=== PATIENT | male | born 2000 | race Caucasian/White ===

== ENCOUNTER 2022-01-30 07:30 | Emergency (ER) | payer SELFPAY ==
[2022-01-30 07:35] VITALS: BP 114/72; PULSE 81; RESP 16; TEMP 36.6; O2SAT 97
--- NOTE | 2022-01-30 07:42 | ED.ANIMALBIT ---
HPI - Animal Bite General Chief Complaint: Animal Bite Stated Complaint: bitten by dog on L wrist Time Seen by Provider: 01/30/22 07:42 History of Present Illness HPI narrative: 21-year-old male, alcoholic presents to the ER after he got bit by his dog at 6.30 AM. He has 4 puncture wounds in his left forearm 2 on the dorsal aspect and 2 on ventral aspect. He also has a bite on his right thumb with partial avulsion of the nail. No other injuries noted. Patient has full range of motion of the right wrist. No sensory loss. His dog is up-to-date on its vaccinations. He received a tetanus shot 4 years ago. MD complaint: animal bite Onset (ago): hour(s) ( 1 hour ago) Animal: dog Description of animal: household pet Mechanism: bite Location: other ( left wrist and right thumb) Location - Extremities: Left: shoulder and Right: hand Pain description: sharp Context: playing with animal Associated symptoms: none Related Data Patient tetanus UTD: Yes Allergies Allergy/AdvReac Type Severity Reaction Status Date / Time No Known Allergies Allergy Verified 01/30/22 07:46 Review of Systems Review of Systems: All systems reviewed & are unremarkable except as noted in HPI and below Constitutional: Constitutional: Reports as per HPI and Reports no additional constitutional complaints Eyes: Eyes: Reports as per HPI and Reports no additional eye complaints ENT: Reports system reviewed and no additional complaints, except as documented and Reports as per HPI Cardiovascular: Cardiovascular: Reports as per HPI and Reports no additional cardiovascular complaints Respiratory: Respiratory: Reports as per HPI and Reports no additional respiratory complaints Gastrointestinal: Gastrointestinal: Reports as per HPI and Reports no additional gastrointestinal complaints Genitourinary: Genitourinary: Reports no additional male genitourinary complaints and Reports as per HPI Musculoskeletal: Musculoskeletal: Reports no additional musculoskeletal complaints and Reports as per HPI Integumentary/Breasts: Comments: 4 bite rios on his left distal forearm and right thumb Neurologic: Reports system reviewed and no additional complaints, except as documented and Reports as per HPI Psychiatric: Psychiatric: Reports no additional psychiatric complaints and Reports as per HPI Endocrine: Endocrine: Reports no additional endocrine complaints and Reports as per HPI Hematologic/Lymphatic: Hematologic/Lymphatic: Reports no additional hematologic/lymphatic complaints and Reports as per HPI Allergic/Immunologic: Allergic/Immunologic: Reports no additional allergic/immunologic complaints and Reports as per HPI Exam Const: General: healthy appearing Nutritional Appearance: thin Orientation/consciousness: patient oriented x3 Limitations: no limitations HENMT: Head: normal to inspection Ears: external ears normal General nose exam: Normal external nose present Face and sinus: normal facial exam Mouth: Yes Normal oral and palatal mucosa present Throat: posterior oropharynx normal Eyes: Conjunctivae: conjunctivae normal Pupils: Equal, round and reactive pupils present EOM: EOMs intact bilaterally Neck: Neck: normal visual inspection, no lymphadenopathy and no meningeal signs Chest: Chest palpation & inspection: normal inspection of the chest Resp: Effort & Inspection: normal respiratory effort Auscultation: clear to auscultation bilaterally Cardio: Rate: regular rate Rhythm: regular rhythm GI: GI Palp: Yes Soft to palpation Auscultation: normal bowel sounds Back/Spine/Pelvis: Back: no CVA tenderness Skin: Other: 2 bite rios/puncture wounds on the ventral aspect of the left distal wrist along with 1 cm laceration at the bite rios. 2 puncture wounds on the dorsal aspect of the left distal wrist. No motor or sensory loss. Injury to the right thumb with partial avulsion of the nail Neuro: General: patient oriented x3, moves all ext
[2022-01-30] MEDS: AMOXICILLIN/CLAVULANATE K 875-125 MG TAB 1 TABLET PO (08:06)
== END 2022-01-30 08:12 | disposition home or self-care (01) ==
PROVIDERS: Emergency Provider Internal Medicine Critical Care Medicine
DX: S41.152A Open bite of left upper arm, initial encounter (principal); W54.0XXA Bitten by dog, initial encounter
CPT/HCPCS: 99283; A9270

== ENCOUNTER 2025-05-17 18:14 | Emergency (ER) | payer SELFPAY ==
[2025-05-17 18:14] VITALS: BP 114/81; PULSE 81; RESP 16; TEMP 37.2; O2SAT 99
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
[2025-05-17] MEDS: IBUPROFEN 600 MG TABLET PO (18:31)
[2025-05-17] MEDS: HYDROcodone/acetaminophen (*CRX) 5-325 MG TABLET 1 TAB PO (18:31)
--- NOTE | 2025-05-17 18:48 | PC.NURSE ---
On 05/17/25, the student, [LUISA GALLAGHER ], provided care and completed [facility] documentation on this patient. I have reviewed the student's documentation and agree with the findings.
== END 2025-05-17 18:43 | disposition home or self-care (01) ==
PROVIDERS: Emergency Provider Emergency Medicine; Referring Provider Internal Medicine
DX: S02.609D Fracture of mandible, unspecified, subsequent encounter for fracture with routine healing (principal); X58.XXXD Exposure to other specified factors, subsequent encounter
CPT/HCPCS: 99283; A9270

== ENCOUNTER 2025-07-06 22:55 | Emergency (ER) | payer SELFPAY ==
--- NOTE | ~2025-07-06 | CT_ITS ---
EXAMINATION:CT diagnostic chest wo con DATE: 07/06/2025 23:15 INDICATION: Injury TECHNIQUE: Computed tomography (CT) of the chest was performed without intravenous contrast. The dose-length product (DLP) was 135.74 mGy-cm. COMPARISON: None. FINDINGS: Probable nondisplaced acute fracture of the left second anterior rib images 53 through 55 of series 4. Trace amount of emphysematous gas present in the chest wall. The lungs are clear with no pneumothorax or pneumothorax or contusion. Heart and great vessels normal size. No mediastinal hematoma. No acute process seen in the upper abdomen. IMPRESSION: 1. Probable nondisplaced left second anterior rib fracture with small amount of emphysema in the anterior left chest wall. 2. Otherwise negative noncontrast chest CT. NOTE: Preliminary radiology report provided by [facility] radiologist/physician. Reviewed, dictated and finalized at location [facility]. [employer]
[2025-07-06 22:57] VITALS: BP 110/59; PULSE 100; RESP 16; TEMP 37.2; O2SAT 98
--- NOTE | 2025-07-06 22:58 | PC.NURSE ---
JAMI Haynes at pt bedside for assessment at this time.
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
== END 2025-07-07 00:10 | disposition home or self-care (01) ==
LOC: CHSED 23:20
PROVIDERS: Emergency Provider Emergency Medicine; PCP Internal Medicine
DX: S20.212A Contusion of left front wall of thorax, initial encounter (principal); W22.8XXA Striking against or struck by other objects, initial encounter
CPT/HCPCS: 71250; 99284

== ENCOUNTER 2025-07-21 08:48 | Emergency (ER) | payer SELFPAY ==
--- NOTE | ~2025-07-21 | XR_ITS ---
EXAMINATION: XR chest 2V 07/21/2025 09:10 INDICATION: Shortness of breath and cough PROCEDURE: 2 view chest COMPARISON: 10/18/2015 FINDINGS: The lungs are clear. The cardiomediastinal silhouette is within normal limits. There are no pleural effusions. There is no pneumothorax suspected. IMPRESSION: 1: NO ACUTE CARDIOPULMONARY DISEASE. Reviewed, dictated and finalized at location O. USER CONSULTANT
[2025-07-21 08:55] VITALS: BP 114/73; PULSE 75; RESP 20; TEMP 37.1; O2SAT 99
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
[2025-07-21 09:03] LABS: Hematocrit 45.8 % (40.0-54.0); Hemoglobin 15.2 g/dL (14.0-18.0); Immature Granulocyte Percent A 0.4 % (0.0-0.0); Lymphocytes Absolute Auto 2.10 K/mm3 (1.10-4.50); Mean Corpuscular HGB Conc 33.2 g/dL (32-36); Mean Corpuscular Hemoglobin 31.7 pg (27.0-31.0); Mean Corpuscular Volume 95.4 fL (78.0-102.0); Nucleated Red Blood Cells Absolute Auto 0.00 K/mm3 (0.00-0.00); Nucleated Red Blood Cells Perc 0.0 % (0-0.0); Platelet Count Result 280 K/mm3 (150-420); Red Blood Count 4.80 M/mm3 (4.70-6.10); White Blood Count 7.4 K/mm3 (4.8-10.8)
[2025-07-21 09:18] LABS: Alanine Aminotransferase 20 U/L (6-50); Albumin Level 4.7 g/dL (3.5-5.1); Alkaline Phosphatase 60 U/L (38-126); Anion Gap 8 mmol/L (4-12); Aspartate Amino Transferase 32 U/L (17-59); Bilirubin,Total 0.2 mg/dL (0.2-1.3); Blood Urea Nitrogen 11 mg/dL (9-20); Calcium 9.2 mg/dL (8.4-10.2); Carbon Dioxide 30 mmol/L (22-30); Chloride 110 mmol/L (98-107); Estimated CRCL calculation 96 ml/min; Estimated Glomerular Filt Rate > 60; Glucose 82 mg/dL (65-110); Osmolality Calculated 304 mOsm/kg (285-295); Potassium 3.9 mmol/L (3.4-5.0); Sodium 148 mmol/L (137-145); Total Protein 7.5 g/dL (6.3-8.2)
[2025-07-21 09:19] LABS: Lipase 50 U/L (23-300)
[2025-07-21 09:39] LABS: Influenza A QL RT-PCR Negative (Negative); Influenza B QL RT-PCR Negative (Negative); RSV RNA, RT-PCR Negative (Negative); SARS-CoV-2 RNA PCR Negative (Negative)
--- NOTE | 2025-07-21 09:42 | ED_ITS ---
HPI - General Adult General Chief complaint: Abdominal Pain Stated complaint: abd pain and cough Time Seen by Provider: 07/21/25 08:49 Source: patient Mode of arrival: ambulatory Limitations: no limitations History of Present Illness HPI narrative: 24-year-old otherwise healthy here with the complaints of cough, congestion pain in the right lower chest for past few days. Denies any fever or chills. Patient states that he had pain in the left side of his chest few days ago which now resolved. Denies any trauma. No history of nausea or vomiting. Onset (ago): day(s) (5) Location: chest and abdomen Severity: mild Quality: aching Pain Consistency: constant Relieving factors: none Exacerbating factors: none Associated symptoms: denies other symptoms Related Data Allergies Allergy/AdvReac Type Severity Reaction Status Date / Time No Known Allergies Allergy Verified 07/06/25 23:18 Review of Systems 2 Review of Systems: All systems reviewed & are unremarkable except as noted in HPI and below Constitutional: Constitutional: Reports no additional constitutional complaints Eyes: Eyes: Reports no additional eye complaints ENT: Reports system reviewed and no additional complaints, except as documented Cardiovascular: Cardiovascular: Reports no additional cardiovascular complaints Respiratory: Respiratory: Reports as per HPI Gastrointestinal: Gastrointestinal: Reports as per HPI Musculoskeletal: Musculoskeletal: Reports no additional musculoskeletal complaints Exam 2 Narrative: GENERAL: Well-appearing, well-nourished, and in no acute distress. Strong smell of THC . HEAD: Normocephalic, atraumatic. EYES: PERRLA and EOMI. ENT: Nares clear, no rhinorrhea or epistaxis. Mucous membranes moist. NECK: Supple. CHEST: Clear to auscultation. No respiratory distress. HEART: Regular rate and rhythm. No murmur heard. Normal peripheral pulses. ABDOMEN: Soft, nontender, nondistended, normal active bowel sounds. EXTREMITIES: Normal range of motion. No edema. SKIN: Warm, dry, no rash. NEURO: No focal deficits. Alert and oriented x3. PSYCH: Normal mood and affect. Course Course Emergency Course: patient comfortably resting in no discomfort informed him about his lab work, chest x-ray findings. Pain appears we will musculoskeletal. Advised him to take pain medication as prescribed. Follow with his primary doctor Vital Signs Vital signs: Vital Signs Temperature 37.1 C 07/21/25 08:55 Pulse Rate 75 07/21/25 08:55 Respiratory Rate 20 07/21/25 08:55 Blood Pressure 114/73 07/21/25 08:55 Pulse Oximetry 99 07/21/25 08:55 Oxygen Delivery Room Air 07/21/25 08:55 Temperature 37.1 C 07/21/25 08:55 Pulse Rate 75 07/21/25 08:55 Respiratory Rate 20 07/21/25 08:55 Blood Pressure 114/73 07/21/25 08:55 Pulse Oximetry 99 07/21/25 08:55 Oxygen Delivery Room Air 07/21/25 08:55 MDM Differential Diagnosis Differential Diagnosis: pneumonia, atypical chest pain Medical Records I have reviewed the following patient records and this information was taken into consideration when formulating the assessment and plan.: previous labs and previous ER visits Lab Data MDM Lab Attestation statement: I personally reviewed the patient's lab results. 07/21/25 08:58 07/21/25 08:58 Labs: Lab Results 07/21/25 07/21/25 Range/Units 08:58 08:59 WBC 7.4 (4.8-10.8) K/mm3 RBC 4.80 (4.70-6.10) M/mm3 Hgb 15.2 (14.0-18.0) g/dL Hct 45.8 (40.0-54.0) % MCV 95.4 (78.0-102.0) fL MCH 31.7 H (27.0-31.0) pg MCHC 33.2 (32-36) g/dL RDW 12.5 (11.6-14.4) % Plt Count 280 (150-420) K/mm3 MPV 9.2 (8.7-11.0) fl Immature Gran % (Auto) 0.4 H (0.0-0.0) % Neut % (Auto) 52.9 (50.0-70.0) % Lymph % (Auto) 28.5 (18.0-42.0) % [place] % (Auto) 8.3 (2.0-11.0) % Eos % (Auto) 8.7 H (1.0-6.0) % Baso % (Auto) 1.2 H (0.0-1.0) % Lymph # (Auto) 2.10 (1.10-4.50) K/mm3 [place] # (Auto) 0.61 (0.10-0.90) K/mm3 Eos # (Auto) 0.64 H (0.02-0.50) K/mm3 Baso # (Auto) 0.09 (0.00-0.10) K/mm3 Abs Immat Gran (auto) 0.03 H (0.00-0.00) K/mm3 Absolute Neuts (auto) 3.90 (1.70-7.20) K/mm3 Absolute Nucleated RBC 0.00 (0.00-0.00) K/mm3 Nucleated RBC % 0.0 (0-0.0) % Sodium 148 H (137-145) mmol/L Potassium 3.9 (3.4-5.0) mmol/L Chloride 110 H (98-107) mmol/L Carbon Dioxide 30 (22-30) mmol/L Anion Gap 8 (4-12) mmol/L BUN 11 (9-20) mg/dL Creatinine 0.76 (0.7-1.3) mg/dL Estim Creat Clear Calc 96 ml/min Estimated GFR > 60 (59 - ) Glucose 82 (65-110) mg/dL Calculated Osmolality 304 H (285-295) mOsm/kg Calcium 9.2 (8.4-10.2) mg/dL Total Bilirubin 0.2 (0.2-1.3) mg/dL AST 32 (17-59) U/L ALT 20 (6-50) U/L Alkaline Phosphatase 60 (38-126) U/L Total Protein 7.5 (6.3-8.2) g/dL Albumin 4.7 (3.5-5.1) g/dL Lipase 50 (23-300) U/L Influenza A (RT-PCR) Negative (Negative) Influenza B (RT-PCR) Negative (Negative) RSV (RT-PCR) Negative (Negative) SARS-CoV-2 RNA (RT-PCR) Negative (Negative) Imaging Data Radiologist's impression: ITS Impressions Chest X-Ray 07/21/25 09:53 IMPRESSION: 1: NO ACUTE CARDIOPULMONARY DISEASE. Discharge Plan Discharge Clinical Impression: Chest pain of uncertain etiology Patient Disposition: Home Condition: Stable Instructions: Chest Pain (DC), Abdominal Pain (ED) Patient Language: Slovak Prescriptions: New naproxen 375 mg tablet 375 mg PO BID PRN (Reason: pain) Qty: 14 0RF No Action amoxicillin-pot clavulanate [Augmentin] 500-125 mg tablet 1 tablet PO Q8H Qty: 21 0RF amoxicillin-pot clavulanate 875-125 mg tablet 1 tablet PO Q12H Qty: 14 0RF Follow-up/Referrals: Brad Dawson MD [Physician, Internal Medicine] Time of Disposition: 10:20
[2025-07-21 10:26] VITALS: BP 105/70; PULSE 55; RESP 20; TEMP 36.9; O2SAT 98
--- OUTSIDE RECORDS SUMMARY | 2025-07-21 10:35 | XMS_ITS | Clinical Summary ---
Author Organization [facility] Address [address] [place] [address] Care Team Providers Care Scanning Supervisor Name Role Phone Pooja Briones ORANGE PICKING SUPERVISOR Primary Care Provider + Allergies No known active allergies Medications No known medications Active Problems Problem Noted Date Diagnosed Date Mandible fracture 05/19/2025 Encounters Date Type Department Care Team Description 05/20/2025 1:08 PM CDT Anesthesia Event [address] [address] Anni Coombs MD Bracco, Kendra A, RN 05/20/2025 12:45 PM CDT - 05/20/2025 4:00 PM CDT Surgery [facility] [address] [place] [address] Huy Garcia MD OPEN REDUCTION INTERNAL FIXATION FRACTURED MANDIBLE, MAXILLOMANDIBULAR FIXATION, TRANSCERVICAL APPROACH 05/18/2025 2:27 PM CDT - 05/21/2025 10:16 AM CDT Hospital Encounter [address] [address] Tong Singer NP Moore, Cindy M, MD Jaw Injury Discharge Disposition: Home or Self Care (Routine Discharge) 05/18/2025 Travel 05/16/2025 9:04 AM CDT - 05/16/2025 10:07 AM CDT Emergency [facility] [place] [address] Mariaa Villagomez DO Jaw Injury Discharge Disposition: [...] week 05/18/2025 How often do you attend [facility] or yazidism services? Never 05/18/2025 Do you belong to any clubs o r organizations such as episcopalian groups, unions, fraternal or athletic groups, or [...] care, and heating? Not very hard 05/18/2025 [employer] [place] [facility] - Occupational [...] any time in the past 12 m [facility], were you homeless or living in a jail (including now)? No 05/18/2025 B1300 Health Literacy Answer Date Recor ded How often do you need to hav e someone help you when you read instructions, pamphlets, or other written material from your doctor or pharmacy? Never 05/18/2025 [facility] Utilities Answer Date Recorded In the past 12 months has th e electric, gas, oil, or water company threatened to shut off services in your home? 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 Gender Identity Not on file Sexual Orientation [...] Status Reason/Outcome Date/Time Adult & Teen Challenge [facility] Intake Office Sober Living Community, Substance Use Recovery Home, Substance Use Services Alcohol Use, Tobacco Use Recommended 05/19/2025 7:50 AM CDT from Last 12 Months Medical Devices Implanted Type Area Post Tensioning Ironworker Helper Device Identifier Shelf Expiration Date Model / Serial / Lot Level One Cmf Implanted:Qty: 2 on 05/20/2025 by Huy Garcia MD at [facility] Plate N/A: Mandible [employer] [id number] 12/08/2029--27 -71 / / [id number] 1.0mm Thick Locking Plate Implanted:Qty: 1 on 05/20/2025 by Huy Garcia MD at [facility] Plate N/A: Mandible [employer] N/A 25-750- / / N/A Level One Cmf Implanted:Qty: 2 on 05/20/2025 by Huy Garcia MD at [facility] Screw N/A: Mandible [employer] [id number] 04/10/2029 / / [id number] Level One Cmf Implanted:Qty: 1 on 05/20/2025 by Huy Garcia MD at [facility] Screw N/A: Mandible [employer] [id number] 04/22/2029 / / [id number] Level One Cmf Implanted:Qty: 1 on 05/20/2025 by Huy Garcia MD at [facility] Screw N/A: Mandible [employer] [id number] 12/24/2028 / / [id number] 2.0 X 7mm Screw Implanted:Qty: 6 on 05/20/2025 by Huy Garcia MD at [facility] Screw N/A: Mandible [employer] N/A 25-879-07 -91 / / N/A 2.0 X 9mm Screw Implanted:Qty: 3 on 05/20/2025 by Huy Garcia MD at [facility] Screw N/A: Mandible [employer] N/A 25-872-09 -91 / / N/A 2.0 X 13mm Screw Implanted:Qty: 3 on 05/20/2025 by Huy Garcia MD at [facility] Screw N/A: Mandible [employer] N/A 25-872-13 - / / N/A 4 Hole 1.5mm Thick Locking Plate Implanted:Qty: 1 on 05/20/2025 by Huy Garcia MD at [facility] N/A: Mandible [employer] N/A 50-712-04 - / / N/A Plate Implanted:Qty: 1 on 05/20/2025 by Huy Garcia MD at [facility] N/A: Mandible [employer] N/A 50-730- - / / N/A Plate Implanted:Qty: 1 on 05/20/2025 by Huy Garcia MD at [facility] N/A: Mandible [employer] N/A 25-752- / / N/A Screw Implanted:Qty: 2 on 05/20/2025 by Huy Garcia MD at [facility] N/A: Mandible [employer] N/A 25-872- - / / NA Screw Implanted:Qty: 2 on 05/20/2025 by Huy Garcia MD at [facility] N/A: Mandible [employer] N/A 25-872- - / / N/A 2.0 X 7mm Drill Free Screw Implanted:Qty: 4 on 05/20/2025 by Huy Garcia MD at [facility] N/A: Mandible [employer] N/A 25-872- - / / N/A Explanted Type Area Post Tensioning Ironworker Helper Device Identifier Shelf Expiration Date Model / Serial / Lot 1.5mm X 7mm Twist Drill Explanted:Qty: 1 on 05/20/2025 at [facility] N/A: Mandible [employer] N/A 25-449-07- / / N/A 4 Hole 1.5mm Thick Locking Plate Explanted:Qty: 1 on 05/20/2025 at [facility] N/A: Mandible [employer] N/A 50-712-04- 09 / / N/A 1.5 X 50mm Twist Drill Explanted:Qty: 2 on 05/20/2025 by uHy Garcia MD at [facility] N/A: Mandible PEG [employer] SUSU N/A 25-449-16- 91 / / N/A Twist Drill Explanted:Qty: 1 on 05/20/2025 by Huy Garcia MD at [facility] N/A: Mandible [employer] SUSU N/A 25-449-05- [...] ABO/RH A POSITIVE 05/19/2025 8:06 AM CDT [facility] ANTIBODY SCREEN NEGATIVE 05/19/2025 8:06 AM CDT [facility] SAMPLE EXPIRATION 05/22/2025,2 359 05/19/2025 7:25 AM CDT [facility] 05/19/2025 7:18 AM CDT us Mirlande Silvestre MD BLOOD BANK TEST ORDERABLES Fin al Result [facility] [address] [place] [address], [phone] * (ABNORMAL) BASIC METABOLIC PANEL (05/19/2025 7:18 AM CDT) SODIUM S/P/B 138 136 - 145 MMOL/L 05/19/2025 7:56 AM CDT [facility] POTASSIUM S/P/B 3.5 3.5 - 5.1 MMOL/L 05/19/2025 7:56 AM CDT [facility] CHLORIDE S/P/B 106 97 - 115 MMOL/L 05/19/2025 7:56 AM CDT [facility] CO2 30.1 21.0 - 32.0 MMOL/L 05/19/2025 7:56 AM CDT [facility] GLUCOSE 122(H) 74 - 106 MG/DL 05/19/2025 7:56 AM T [facility] BUN 13 7 - 18 MG/DL 05/19/2025 7:56 AM CDT [facility] CREATININE S/P/B 0.71 0.70 - 1.30 MG/DL 05/19/2025 7:56 AM T [facility] CALCIUM S/P/B 9.2 8.5 - 10.1 MG/DL 05/19/2025 7:56 AM T [facility] ANION GAP 1.9(L) 2.0 - 10.0 MMOL/L 05/19/2025 7:56 AM T [facility] OSMOLALITY (CALC) 287 MOSM/KG 025 7:56 AM T [facility] Comment:REFERENCE RANGE NOT ESTABLISHED GFR ESTIMATE >90 >90 ML/MIN/1. 73 M2 05/19/2025 7:56 AM T [facility] GFR NOTES GFR REFERENCE S: 05/19/2025 7:56 AM T [facility] Comment: THE ESTIMATED GFR IS [...] us Mirlande Silvestre MD LABORATORY Final Result [facility] [address] [place] [address], [id number] * (ABNORMAL) CBC, AUTO, NO DIFF (05/19/2025 7:18 AM CDT) WBC 7.13 4.00 - 10.80 x10'3/uL 05/19/2025 7:30 AM CDT [facility] RBC 4.74 4.50 - 6.10 x10'6/uL 05/19/2025 7:30 AM CDT [facility] HGB 15.1 13.0 - 18.0 G/DL 05/19/2025 7:30 AM CDT [facility] HCT 45.2 37.0 - 52.0 % 05/19/2025 7:30 AM CDT [facility] MCV 95.4 78.0 - 100.0 FL 05/19/2025 7:30 AM CDT [facility] MCH 31.9(H) 27.0 - 31.0 PG 05/19/2025 7:30 AM CDT [facility] MCHC 33.4 33.0 - 36.0 G/DL 05/19/2025 7:30 AM CDT [facility] RDW 11.9 11.5 - 14.5 % 05/19/2025 7:30 AM CDT [facility] PLT 226 150 - 350 x10'3/uL 05/19/2025 7:30 AM CDT [facility] MPV 9.6 7.4 - 10.4 FL 05/19/2025 7:30 AM CDT [facility] 05/19/2025 7:18 AM CDT Mirlande Silvestre MD LABORATORY Final Result [facility] [address] [place] [address], [place] [phone] * CT FACIAL BONES WO CON (05/16/2025 [...] 9:27 AM Narrative 05/16/2025 9:34 AM CDT [address] [place] [address] Examination: CT FACIAL BONES WO CON Exam [...] Procedure Note Masoud Rehman MD - 05/16/2025 [place] [id number] [facility] [place] [address] Examination: CT FACIAL BONES WO CON Exam [...] 11:26 AM 05/21/2025 12:21 PM Care Teams Scanning Supervisor Relationship Specialty Start Date End Date Pooja Briones, NICHOLAS [address] [place] [address] PCP - General Nurse Practitioner Family 05/19/25
== END 2025-07-21 10:29 | disposition home or self-care (01) ==
PROVIDERS: Emergency Provider Family Medicine; Referring Provider Family Medicine
DX: R07.9 Chest pain, unspecified (principal); Z20.822 Contact with and (suspected) exposure to COVID-19
CPT/HCPCS: 36415; 71046; 80053; 83690; 85025; 87637; 99283